=== PATIENT | female | born 1990 | race Two or more races ===

== ENCOUNTER → 2020-06-02 | Outpatient (CLI) | payer BC ==
--- NOTE | 2020-06-02 11:57 | WOMENS IMAGING REPORT ---
EXAM DESCRIPTION: U/S THYROID/ST TIS HEAD NECK IMAGES COMPLETED DATE/TIME: 06/02/2020 11:22 am REASON FOR STUDY: R94.6 ABNORMAL RESULTS OF THYROID FUNCTION STUDIES R94.6 ABNORMAL RESULTS OF THYR OID FUNCTION STUDIES COMPARISON: None. TECHNIQUE: Dynamic and static zavala-scale images acquired of the thyroid gland. Selected additional c olor/power Doppler images recorded. All images stored to PACS. LIMITATIONS: None. FINDINGS: RIGHT LOBE: Normal size. Homogeneous echotexture. There is a 7 x 6 x 9 mm hypoechoic nod ule. Well-defined borders. No calcification. This is a TR 4 lesion. Based on size no further inve stigation is warranted LEFT LOBE: Normal size. Homogeneous echotexture. No cystic or solid masses. ISTHMUS: Normal size. Homogeneous echotexture. No cystic or solid masses. OTHER: No other significant finding. IMPRESSION: Small hypoechoic solid right thyroid nodule. Based on current criteria no further vinicio p is needed. TECHNICAL DOCUMENTATION: JOB ID: [id number] 2010 [employer]- All Rights Reserved Reading location - IP/workstation name: [email or web address]
== END ==
LOC: WI 10:44
PROVIDERS: ATTEND Family Medicine
DX: E04.1 Nontoxic single thyroid nodule (principal)
CPT/HCPCS: 76536